=== PATIENT | female | born 1965 | race Caucasian/White ===

== ENCOUNTER 2022-11-04 08:58 | Emergency (ER) | payer OTHER, SELFPAY ==
--- NOTE | ~2022-11-04 | CT_ITS ---
EXAMINATION: CT cervical spine wo con DATE: 11/04/2022 09:38 INDICATION: 405 days of neck pain radiating to the right upper extremity TECHNIQUE: Computed tomography (CT) of the cervical spine was performed without intravenous contrast. Automated exposure control and iterative reconstruction technique were employed. The dose-length pro duct was 412.98 mGy-cm. COMPARISON: None FINDINGS: Straightening of the normal cervical lordosis. Vertebral body heights are normal. No fracture. Modera te disc height loss at C6-C7 and mild disc height loss at C4-C5 and C5-C6. Small amount of atheroscle rotic calcification at the left carotid bulb. Cervical soft tissues are otherwise unremarkable. Visua lized apices of lungs are clear. The following disc levels are specifically discussed: C2-C3: The disc does not extend beyond the endplate margin. There is mild bilateral uncovertebral amaury nt osteoarthritis. There is mild left and severe right facet joint osteoarthritis. There is mild righ t neural foraminal stenosis. There is no central canal stenosis. C3-C4: Disc is minimally bulging. There is severe bilateral uncovertebral joint osteoarthritis. There is severe bilateral facet joint osteoarthritis. There is moderate bilateral neural foraminal stenosi s. There is minimal central canal stenosis. C4-C5: Disc is bulging. There is severe right and moderate to severe left uncovertebral joint osteoar thritis. There is mild right and severe left facet joint osteoarthritis. There is mild right and mode rate left neural foraminal stenosis. There is mild central canal stenosis. C5-C6: Posterior disc osteophyte complex. There is severe bilateral uncovertebral joint osteoarthriti s. There is mild bilateral facet joint osteoarthritis. There is mild right and mild to moderate left neural foraminal stenosis. There is mild central canal stenosis. C6-C7: Posterior disc osteophyte complex. There is severe bilateral uncovertebral joint osteoarthriti s. There is mild bilateral facet joint osteoarthritis. There is mild right and mild to moderate left neural foraminal stenosis. There is mild central canal stenosis. C7-T1: The disc does not extend beyond the endplate margin. There is no uncovertebral joint osteoarth ritis. There is moderate left and severe right facet joint osteoarthritis. There is minimal bilateral neural foraminal stenosis. There is no central canal stenosis. IMPRESSION: 1. Moderate cervical spondylosis. No acute osseous abnormality. Reviewed, dictated and finalized at location A.
--- NOTE | ~2022-11-04 | XR_ITS ---
EXAMINATION: XR shoulder RT min 2V INDICATION: Right shoulder pain TECHNIQUE: Four views of the right shoulder are submitted. COMPARISON: None FINDINGS: Normal alignment. No fracture. There is mild osteoarthritis of the glenohumeral and acromio clavicular joints. Soft tissues are unremarkable. IMPRESSION: 1. No acute osseous abnormality. Reviewed, dictated and finalized at location A.
--- NOTE | ~2022-11-04 | XR_ITS ---
EXAMINATION: XR chest 1V INDICATION: Right chest pain TECHNIQUE: PA view of the chest is obtained. COMPARISON: 10/07/2012 FINDINGS: The lungs are free of acute opacities. No pleural effusion or pneumothorax. A calcified nod ule of the left lung base is consistent with old granulomatous disease. IMPRESSION: 1. No acute cardiopulmonary abnormality. Reviewed, dictated and finalized at location A.
[2022-11-04 09:01] VITALS: BP 190/94; PULSE 63; RESP 18; TEMP 36.4; O2SAT 99
--- NOTE | 2022-11-04 09:24 | ECG_ITS ---
Measurements Intervals [place] Rate: 56 P: 30 GA: 149 QRS: 15 QRSD: 83 T: 41 QT: 433 QTc: 418 Interpretive Statements SINUS BRADYCARDIA LOW QRS VOLTAGE IN PRECORDIAL LEADS [QRS DEFLECTION < 1.0 mV IN CHEST LEADS] NO PREVIOUS ECG AVAILABLE FOR COMPARISON Electronically Signed On 11-04-2022 17:52:06 CDT by Roland Lilly M.D.
--- NOTE | 2022-11-04 09:37 | ED.GENADULT ---
HPI - General Adult General Chief complaint: Extremity Injury, Upper <Onur Villanueva PA-C - Last Filed: 11/04/22 17:46> Stated complaint: right shoulder pain <BASIA Butcher Last Filed: 11/04/22 17:46> Time Seen by Provider: 11/04/22 09:00 <Onur Villanueva PA-C - Last Filed: 11/04/22 17:46> Source: patient <BASIA Butcher Last Filed: 11/04/22 17:46> Mode of arrival: ambulatory <BASIA Butcher Last Filed: 11/04/22 17:46> Limitations: no limitations <BASIA Butcher Last Filed: 11/04/22 17:46> History of Present Illness HPI narrative: This is a 56-year-old female with PMH of CAD presents to the ED with chief complaint of right upper back pain that radiates into the right arm and right chest for 5 days. Patient states the pain has been constant. Describes as a pressure. States that just came on randomly. She did move boxes with her son recently, however this did not seem to alter her symptoms. Patient was seen at another facility recently where she was diagnosed with muscle spasm and given muscle relaxers, however she feels that this has not provided relief. When asked about her coronary history, she says that they did a angio but she never had any stents placed. Denies shortness of breath, sweats, nausea, vomiting, abdominal pain. <Onur Villanueva PA-C - Last Filed: 11/04/22 17:46> Related Data Allergies/adverse reactions: Allergies Allergy/AdvReac Type Severity Reaction Status Date / Time No Known Allergies Allergy Verified 11/04/22 09:06 <BASIA Butcher Last Filed: 11/04/22 17:46> Review of Systems Review of Systems: CONSTITUTIONAL: Denies fever, chills, or sweats. EYES: Denies visual changes, redness, or discharge. ENT: Denies rhinorrhea, congestion, sore throat, or otalgia. CARDIOVASCULAR: See HPI RESPIRATORY: Denies cough or dyspnea. GASTROINTESTINAL: Denies abdominal pain, nausea, vomiting, or diarrhea. GENITOURINARY: Denies dysuria or hematuria. SKIN: Denies rash or itching. MUSCULOSKELETAL: See HPI NEUROLOGIC: Denies headache, numbness, dizziness, or weakness. PSYCHIATRIC: Denies anxiety or depression. <Onur Villanueva PA-C - Last Filed: 11/04/22 17:46> Course Course Emergency Course: Reevaluation 1041: Patient reports no relief with the aspirin. Pain is still the same in the right side of the shoulder and chest. She does note that the pain seems worse in the back. She is point tender in the medial scapular area on the right side. Still not having any shortness of breath or tachycardia. <Onur Villanueva PA-C - Last Filed: 11/04/22 17:46> Vital Signs Vital signs: Vital Signs Temperature 97.6 F 11/04/22 09:01 Pulse Rate 63 11/04/22 09:01 Respiratory Rate 18 11/04/22 09:01 Blood Pressure 190/94 H 11/04/22 09:01 Pulse Oximetry 99 11/04/22 09:01 Oxygen Delivery Room Air 11/04/22 09:01 Temperature 97.6 F 11/04/22 09:01 Pulse Rate 60 11/04/22 13:03 Respiratory Rate 16 11/04/22 13:03 Blood Pressure 153/77 H 11/04/22 13:03 Pulse Oximetry 100 11/04/22 13:03 Oxygen Delivery Room Air 11/04/22 09:01 <BASIA Butcher Last Filed: 11/04/22 17:46> Vital Signs Temperature 97.6 F 11/04/22 09:01 Pulse Rate 63 11/04/22 09:01 Respiratory Rate 18 11/04/22 09:01 Blood Pressure 190/94 H 11/04/22 09:01 Pulse Oximetry 99 11/04/22 09:01 Oxygen Delivery Room Air 11/04/22 09:01 Temperature 97.6 F 11/04/22 09:01 Pulse Rate 60 11/04/22 13:03 Respiratory Rate 16 11/04/22 13:03 Blood Pressure 153/77 H 11/04/22 13:03 Pulse Oximetry 100 11/04/22 13:03 Oxygen Delivery Room Air 11/04/22 09:01 <Bebeto Aj III, DO - Last Filed: 11/04/22 18:14> Medical Decision Making MDM Narrative Medical decision making narrative: This is a 56-year-old female presents the ED with chief complaint of right upper back pain that radiates into the right
[2022-11-04 10:00] LABS: Basophils Percent Auto 0.6 % (0.2-1.2); Eosinophils Absolute Auto 0.1 K/mm3 (0-0.3); Hematocrit 38.5 % (37.0-47.0); Hemoglobin 13.1 g/dL (12.0-15.0); Immature Granulocyte Absolute 0.01 K/mm3 (0.00-0.031); Immature Granulocyte Percent A 0.3 % (0-0.5); Lymphocytes Absolute Auto 1.48 K/mm3 (0.9-3.2); Lymphocytes Percent Auto 43.8 % (18.3-44.2); Mean Corpuscular Hemoglobin 30.1 pg (26-34); Mean Corpuscular Volume 88.5 fl (80-100); Mean Platelet Volume 10.9 fl (7.4-10.4); Monocytes Absolute Auto 0.3 K/mm3 (0.1-0.6); Monocytes Percent Auto 7.4 % (2.6-8.5); Neutrophils Absolute Auto 1.5 K/mm3 (1.3-6.7); Neutrophils Percent Auto 44.9 % (45.5-73.1); Platelet Count Result 77 k/mm3 (150-375); Red Blood Count 4.35 M/mm3 (4.2-5.4); Red Cell Distribution Width 12.1 % (11.5-14.5); White Blood Count 3.4 K/mm3 (4.5-10.0)
[2022-11-04] MEDS: ASPIRIN 81 MG CHEWABLE TABLET 324 MG PO (10:06)
[2022-11-04 10:07] LABS: Alanine Aminotransferase 80 U/L (6-35); Albumin Level 4.5 g/dL (3.5-5.1); Alkaline Phosphatase 103 U/L (38-126); Anion Gap 10 mmol/L (8-16); Aspartate Amino Transferase 68 U/L (14-36); Bilirubin,Total 0.8 mg/dL (0.2-1.3); Blood Urea Nitrogen 13 mg/dL (7-17); Carbon Dioxide 25 mmol/L (22-30); Chloride 104 mmol/L (98-107); Estimated CRCL calculation 99 ml/min; Estimated Glomerular Filt Rate > 60; Glucose 116 mg/dL (65-110); Potassium 4.3 mmol/L (3.4-5.0); Sodium 139 mmol/L (137-145)
[2022-11-04 10:09] VITALS: BP 185/84; PULSE 68; RESP 14; O2SAT 100
[2022-11-04 10:20] LABS: Troponin I < 0.012 ng/mL (0.000-0.034)
[2022-11-04] MEDS: MORPHINE SULFATE (*CRX) 2 MG/ML INJ IV PUSH (11:09)
[2022-11-04 11:12] VITALS: BP 153/68; PULSE 66; RESP 19; O2SAT 100
[2022-11-04] MEDS: ORPHENADRINE CITRATE 100 MG TABLET.ER PO (11:13)
[2022-11-04 12:42] LABS: Troponin I < 0.012 ng/mL (0.000-0.034)
[2022-11-04 13:03] VITALS: BP 153/77; PULSE 60; RESP 16; O2SAT 100
== END 2022-11-04 13:04 | disposition home or self-care (01) ==
PROVIDERS: Emergency Provider Physician Assistant
DX: M19.011 Primary osteoarthritis, right shoulder (principal); M47.812 Spondylosis without myelopathy or radiculopathy, cervical region; I25.10 Atherosclerotic heart disease of native coronary artery without angina pectoris; Z98.61 Coronary angioplasty status; R00.1 Bradycardia, unspecified
CPT/HCPCS: 36415; 71045; 72125; 73030; 80053; 84484; 85025; 85055; 93005; 96374; 99284; A9270; J2270

== ENCOUNTER 2024-06-22 10:22 | Emergency (ER) | payer OTHER, SELFPAY ==
--- NOTE | 2024-06-22 10:26 | ED.URI ---
HPI - URI/Sore Throat General Chief Complaint: Upper Respiratory Infection Stated Complaint: cough/congestion/throat Time Seen by Provider: 06/22/24 10:50 Source: patient and RN notes reviewed Mode of arrival: ambulatory Limitations: no limitations History of Present Illness HPI Narrative: 4-year-old female presents with concern for 4-5 day history of cough, headache, runny nose sore throat. She has not taken any medications for her symptoms. She reports family members with similar symptoms. She denies fever, body aches, chills, sweats MD elicited complaint: cough and sore throat Related Data Allergies Allergy/AdvReac Type Severity Reaction Status Date / Time No Known Allergies Allergy Verified 12/08/23 07:23 Review of Systems Review of Systems: CONSTITUTIONAL: Denies malaise, chills, sweats, or fever. EYES: Denies visual changes, redness, or discharge. ENT: Reports rhinorrhea, congestion, and sore throat. CARDIOVASCULAR: Denies chest pain, palpitations, or edema. RESPIRATORY: Reports cough. Denies dyspnea. GASTROINTESTINAL: Denies abdominal pain, nausea, vomiting, diarrhea SKIN: Denies rash or itching. MUSCULOSKELETAL: Denies myalgia. NEUROLOGIC: Denies headache. All systems reviewed & are unremarkable except as noted in HPI and below PMFSH Comments At time of signature, agree with nursing past medical, surgical, social and family history. There is no relevant family history pertinent to the presenting complaint Exam Narrative: GENERAL: Well-appearing, well-nourished, and in no acute distress. HEAD: Normocephalic EYES: PERRLA, conjunctivae clear ENT: Nares clear, turbinates edematous and erythematous, clear discharge. Mucous membranes moist. TM pearly lopez with dull light reflex bilaterally; no tragal tenderness. Oropharynx not erythematous without lesions. Tonsils not enlarged and without exudate, no drooling, no hoarseness, no trismus, uvula midline. NECK: Supple. No lymphadenopathy CHEST: Clear to auscultation, breath sounds equal. No wheezing, rhonchi, rales, or stridor. No respiratory distress, speaks in full sentences. HEART: Regular rate and rhythm. No murmur heard. SKIN: Warm, dry, no rash. NEURO: Alert and oriented x3. PSYCH: Normal mood and affect Course Course Emergency Course: Patient is aware of diagnosis, understands and agrees to treatment plan. Anticipatory guidance given. Patient agrees to follow-up as directed and is aware of reasons to seek care at the emergency department. Portions of this record may have been created with voice recognition software Level of Care: Express Care Visit Vital Signs Vital signs: Reviewed. MDM - URI/Sore Throat MDM Narrative Medical decision making narrative: Differential diagnosis considered: Barry virus, strep pharyngitis, allergic rhinitis, upper respiratory tract infection, sinusitis, rhinosinusitis, nasopharyngitis. viral pharyngitis, otitis media, otitis externa, pneumonia, bronchitis, viral cough syndrome, viral syndrome, and influenza. Exam findings show no acute concerns or changes; patient is non-toxic appearing and is in no distress. Patient is appropriate for outpatient treatment and follow-up. Lab Data Attestation: I reviewed the patient's lab results. Critical Care Time Critical Care Time Critical Care Time: No Discharge Plan Discharge Clinical Impression: Upper respiratory infection Patient Disposition: Home, Self-Care Condition: Stable Instructions: Upper Respiratory Infection (ED) Additional Instructions: Viral illness may last between 7-21 days; antibiotics do not cure viral illness and are NOT recommended at this time. Recommend antihistamine such as Benadryl at night time and Zyrtec or [place] during the day Also, recommend symptomatic treatment includes: rest, fluids, and increase humidity of the air at home. Recommend Acetaminophen as directed on the bottle to reduce fever, pain, headache. Avoid smoking/second-hand smoke. Please schedule a follow-up visit with your personal physician for further evaluation and treatment within 3-5days. Including recheck and discussion of your blood pressure. If your symptoms persist, change or worsen significantly before you can contact your personal physician then please, without delay, go to the emergency department for further evaluation. Prescriptions: New dextromethorphan-guaifenesin [Mucinex DM] 60-1,200 mg tablet extended release 12 hr 1 tablet PO Q12H Qty: 12 0RF methylprednisolone [Medrol (Ananda)] 4 mg tablets,dose pack See Rx Instructions .ROUTE .COMPLEX Qty: 21 0RF Rx Instructions: orally per package directions Follow-up/Referrals: PHYSICIAN,FARM MACH[employer]ERY [employer]BLER [Primary Care Provider] - Stand Alone Forms: Work/School Release IP Time of Disposition: 11:08
[2024-06-22 10:34] VITALS: BP 171/99; PULSE 78; RESP 18; TEMP 36.7; O2SAT 99
== END 2024-06-22 11:18 | disposition home or self-care (01) ==
PROVIDERS: Emergency Provider Nurse Practitioner
DX: J06.9 Acute upper respiratory infection, unspecified (principal); I25.10 Atherosclerotic heart disease of native coronary artery without angina pectoris; M19.90 Unspecified osteoarthritis, unspecified site
CPT/HCPCS: 99213; G0463